=== PATIENT | male | born 1965 | race Two or more races ===

== ENCOUNTER 2020-06-09 08:14 | Inpatient (IN) | payer MEDICAID ==
[2020-06-09] VITALS (30 sets, daily range): BP systolic 99–126; BP diastolic 53–71
[~2020-06-09] VITALS: Ht 167.6 cm; Wt 74.4 kg
--- NOTE | 2020-06-09 08:20 | NUR ---
[id number] FROM BUS STOP, VOMITING BLOOD +ETOH. no fever noted. pt alert and able to follow directions. MD at bedside for evaluation. will continue to monitor
--- NOTE | 2020-06-09 08:23 | NUR ---
iv line established. blood drawn adn sent to lab
[2020-06-09] MEDS ORDERED: PANTOPRAZOLE 40 MG VIAL ONE (08:25)
[2020-06-09] MEDS ORDERED: IV NS 0.9% 1,000 ML BAG IV ONE (08:30)
[2020-06-09] MEDS ORDERED: PANTOPRAZOLE 40 MG VIAL IV ONE (08:30)
[2020-06-09 08:57] LABS: BASOPHILS % (AUTO) 0.4 % (0.0-2.0); EOSINOPHILS % (AUTO) 0.2 % (0.0-6.0); LYMPHOCYTES # (AUTO) 2.2 /CMM (0.8-4.8); MEAN CORPUSCULAR HGB CONC 34 g/dl (31.0-36.0); MEAN CORPUSCULAR VOLUME 107 fL (80-96); MONOCYTES # (AUTO) 1.1 /CMM (0.1-1.30); MONOCYTES % (AUTO) 11.8 % (2.0-12.0); NEUTROPHILS # (AUTO) 6.3 /CMM (1.8-8.9); NEUTROPHILS % (AUTO) 64.6 % (43.0-81.0); PLATELET COUNT (AUTO) 221 /CMM (150-450); WHITE BLOOD COUNT (AUTO) 9.7 K/uL (4.3-11.0)
[2020-06-09 08:58] LABS: RED BLOOD CELL COUNT(AUTO) 1.36 MIL/uL (4.5-6.0)
[2020-06-09 09:00] LABS: HEMATOCRIT 15 % (39-51); HEMOGLOBIN 4.9 g/dL (13.5-17.5)
--- NOTE | 2020-06-09 09:02 | NUR ---
GI CONSULT CALLED DR. ALVAREZ [phone]
[2020-06-09 09:06] LABS: CALCIUM, SERUM 8.1 mg/dL (8.5-10.1); CARBON DIOXIDE 22 mmol/L (21-32); CHLORIDE 100 mmol/L (98-107); CREATININE 1.1 mg/dL (0.6-1.3); GLUCOSE 122 mg/dL (74-106); POTASSIUM 4.6 mmol/L (3.5-5.1); SODIUM SERUM 135 mmol/L (136-145); UREA NITROGEN, BLOOD 29 mg/dL (7-18)
[2020-06-09 09:12] LABS: ALANINE AMINOTRANSFERASE 218 U/L (12-78); ALBUMIN 2.1 g/dL (3.4-5.0); ALKALINE PHOSPHATASE 70 U/L (46-116); ASPARTATE AMINOTRANSFERASE 611 U/L (15-37); BILIRUBIN,DIRECT 0.3 mg/dL (0.0-0.2); BILIRUBIN,TOTAL 0.8 mg/dL (0.2-1.0); TOTAL PROTEIN, SERUM 5.6 g/dL (6.4-8.2)
--- NOTE | 2020-06-09 09:14 | NUR ---
pt in bed alert and able to follow directions. no changes in LOC. all needs attended. kept pt comfortable. no episode of vomiting at this time. will continue POC
--- NOTE | 2020-06-09 09:27 | NUR ---
GOT BED IN 30 MINS ICU 254
[2020-06-09] MEDS ORDERED: MORPHINE SULFATE INJ 2 MG/ML DISP.SYRIN IV PRN (09:30)
[2020-06-09] MEDS ORDERED: OCTREOTIDE 1,250 MCG in IV NS 0.9% 250 ML IV ONE (09:30)
[2020-06-09] MEDS ORDERED: PANTOPRAZOLE 80 MG in IV NS 0.9% 500 ML IV PRN (09:30)
[2020-06-09] MEDS ORDERED: ONDANSETRON HCL/PF 4 MG/2 ML VIAL IVP PRN (09:30)
[2020-06-09] MEDS ORDERED: OCTREOTIDE 500 MCG in IV NS 0.9% 99 ML IV ONE (09:30)
[2020-06-09] MEDS ORDERED: PANTOPRAZOLE 80 MG in IV NS 0.9% 100 ML IV ONE (09:30)
[2020-06-09] MEDS ORDERED: LORAZEPAM INJ 2 MG/ML VIAL IV PRN (09:30)
[2020-06-09] MEDS ORDERED: OCTREOTIDE 50 MCG/ML AMPUL IV ONE (09:30)
[2020-06-09] MEDS ORDERED: Z GUARD REMEDY 2 OZ OINT TP PRN (09:30)
--- NOTE | 2020-06-09 09:37 | NUR ---
COVID SWAB COLLECTED AND SENT TO LAB
--- NOTE | 2020-06-09 09:51 | NUR ---
pt out for CT
[2020-06-09] MEDS ORDERED: IV D5/ 0.9% NACL 1,000 ML IV ONE (10:00)
[2020-06-09 10:19] LABS: LYMPHOCYTES % (MANUAL) 25 % (16-48); MONOCYTES % (MANUAL) 8 % (0-11.0); NEUTROPHILS % (MANUAL) 67 (42-76)
[2020-06-09] MEDS ORDERED: OCTREOTIDE 1,250 MCG in IV NS 0.9% 247.5 ML IV PRN (10:30)
--- NOTE | 2020-06-09 11:16 | NUR ---
REPORT GIVEN TO YANNI YOUNG FOR GORGE
--- NOTE | 2020-06-09 11:35 | NUR ---
RN ADMITTING NOTES RECEIVED PATIENT FROM ER VIA BED, A/OX4, WEAK, RELAXED, DENIES PAIN OR DISCOMFORT, ON RA SPO2 IS 93-94%, NO SOB NOTED AT THIS TIME,TELE-MONITOR READINGS IS SR 95 AT THIS MOMENT, DENIES CHEST PAIN OR TIGHTNESS; IV LINES PRESENT BILAT ON L AND R AC, BOTH G 18, INTACT AND PATENT. PATIENT RECEIVING PRBC 1 UNIT @ 120 CC/HR, TOLERATING WELL, NO SOB, FEVER, CHILLS OR ADVERSE REACTION NOTED AT THIS TIME, REPORTING MILD WEAKNESS ON LOWER EXTREMITIES, NPO STATUS NOTED, SCABS NOTED ON FOREHEAD, PICTURES TAKEN AND PLACED IN CHART, BED IN LOWEST POSITION, CALL LIGHT IN REACH, MONITORS CONNECTED, ALARMS WORKING, WILL CONT TO MONITOR
[2020-06-09] MEDS: Thiamine 100 MG in IV D5W 50 ML IV SCH (11:51)
--- NOTE | 2020-06-09 12:35 | NUR ---
TOLERATING BLOOD TRANSFUSION WELL, NO ADVERSE REACTION NOTED
[2020-06-09] MEDS: OCTREOTIDE 500 MCG in IV NS 0.9% 99 ML IV PRN (13:15)
--- NOTE | 2020-06-09 13:22 | NUR ---
SW called ICU attempting to interview the pt. over the phone. However, per ICU nurse, the pt. is very weak and not interviewable at the moment. SW will be available as needed.
--- NOTE | 2020-06-09 13:45 | NUR ---
picked up second unit of PRBC, will transfuse
--- NOTE | 2020-06-09 13:51 | NUR ---
Initialed second unit of blood transfusion, tolerating well, monitoring closely
[2020-06-09 15:13] LABS: BASOPHILS % (AUTO) 0.3 % (0.0-2.0); EOSINOPHILS % (AUTO) 0.2 % (0.0-6.0); LYMPHOCYTES # (AUTO) 1.2 /CMM (0.8-4.8); LYMPHOCYTES % (AUTO) 21.1 % (20.0-44.0); MEAN CORPUSCULAR HGB CONC 34 g/dl (31.0-36.0); MEAN CORPUSCULAR VOLUME 100 fL (80-96); MONOCYTES # (AUTO) 0.7 /CMM (0.1-1.30); MONOCYTES % (AUTO) 11.6 % (2.0-12.0); NEUTROPHILS # (AUTO) 3.8 /CMM (1.8-8.9); NEUTROPHILS % (AUTO) 66.8 % (43.0-81.0); PLATELET COUNT (AUTO) 103 /CMM (150-450); WHITE BLOOD COUNT (AUTO) 5.6 K/uL (4.3-11.0)
[2020-06-09 15:22] LABS: HEMOGLOBIN 5.7 g/dL (13.5-17.5); RED BLOOD CELL COUNT(AUTO) 1.66 MIL/uL (4.5-6.0)
[2020-06-09 15:23] LABS: HEMATOCRIT 17 % (39-51)
[2020-06-09 15:57] LABS: EOSINOPHILS % (MANUAL) 1 % (0-4); LYMPHOCYTES % (MANUAL) 25 % (16-48); MONOCYTES % (MANUAL) 10 % (0-11.0); NEUTROPHILS % (MANUAL) 64 (42-76)
[2020-06-09] MEDS: CEFTRIAXONE 1 G in IV D5W 50 ML IV SCH (16:04)
--- NOTE | 2020-06-09 16:20 | NUR ---
Finished blood transfusion, tolerated well, cont to monitor
--- NOTE | 2020-06-09 18:38 | NUR ---
PATIENT COMPLAINS ON PAIN IN ABDOMINAL AREA 8/10, EXPERIENCING TREMORS AND SHAKING, WILL ADMINISTER PRN PAIN MEDIATION
[2020-06-09] MEDS: MORPHINE SULFATE INJ 2 MG/ML DISP.SYRIN IV PRN ×2 (18:41→23:08)
--- NOTE | 2020-06-09 19:07 | NUR ---
RN CLOSING NOTES PATIENT REMAINS IN BED, A/OX4, ON NC @2L, SPO2 IS 100%, TOLERATING WELL, NO S/SX OF RESP DISTRESS NOTED, RECEIVING SANDOSTATIN @ 5CC/HR, AND D5NS @ 100C/HR, TOLERATING WELL, IV LINES PATENT AND INTACT,REPORTS PAIN LEVEL AT 2 AT THIS MOMENT AFTER ADMINISTRATION PRN PAIN MEDICATION, SAFETY MEASURES IN PLACE, CALL LIGHT IN REACH, BED IS LOCKED IN LOWEST POSITION, WILL ENDORSE TO PM SHIFT RN FOR GORGE
--- NOTE | 2020-06-09 19:45 | NUR ---
ICU/MONOTYPE KEYBOARD OPERATOR RECEIVED REPORT FROM DAY NURSE. SEE FLOWSHEET FOR ASSESSMENT,SKIN ISSUES ARE ADDRESSED ON FLOWSHEET ALONG WITH INTERVENTIONS TO EACH. PT IS ALERT X4. PT IS ON ROOM AIR SATURATION IS 96% ON ROOM AIR, PT APPEARS HAVE TAKEN OFF THE OXYGEN. PT TURNS SELF AND REPOSITIONS SELF FOR COMFORT AND CARE WITHOUT ANY ASSISTANCE. WILL CONTINUE TO MONITOR THIS PT, NO ACUTE DISTRESS SEEN.
[2020-06-09 20:28] LABS: HEMOGLOBIN 6.2 g/dL (13.5-17.5)
--- NOTE | 2020-06-09 20:36 | NUR ---
ICU/INSTRUMENT TECHNOLOGIST H/H IS 6.10/05. THERE WILL BE ONE MORE UNIT OF BLOOD TO GIVE PER MD ORDERS. Addendum: 06/09/20 at 2036 by ADELA SHORE LVN Amended: Links added.
[2020-06-09] MEDS: PANTOPRAZOLE 40 MG VIAL IV SCH (21:28)
--- NOTE | 2020-06-09 23:10 | NUR ---
ICU/DATA PROCESSING SYSTEMS CONSULTANT CALLED BLOOD BANK TO SEE IF 1 UNIT OF PACKED RED BLOOD CELLS IS AVAILABLE, WHICH IT IS. WILL TRANSFUSE THIS PER MD'S ORDERS.
[2020-06-10] VITALS (29 sets, daily range): BP systolic 100–137; BP diastolic 58–89
--- NOTE | 2020-06-10 00:35 | NUR ---
ICU/STONE TRIMMER LAST TRANSFUSION BEGAN, PT APPEARS TO BE TOLERATING THIS WELL, WITHOUT ANY PROBLEMS. CALL LIGHT WITHIN REACH.
--- NOTE | 2020-06-10 03:00 | NUR ---
ICU/WEIGHER PACKING LAST TRANSFUSION COMPLETED, WILL HAVE AM LABS DRAWN IN AN HOUR OR SO FOR H&H RESULTS. NO ACUTE DISTRESS SEEN. PT APPEARS TO BE COMFORTABLE.
[2020-06-10] MEDS: OCTREOTIDE 500 MCG in IV NS 0.9% 99 ML IV PRN ×3 (03:52→19:39)
[2020-06-10 04:45] LABS: EOSINOPHILS % (AUTO) 1.5 % (0.0-6.0); HEMATOCRIT 22 % (39-51); HEMOGLOBIN 7.6 g/dL (13.5-17.5); LYMPHOCYTES % (AUTO) 24.3 % (20.0-44.0); MEAN CORPUSCULAR HGB CONC 34 g/dl (31.0-36.0); MEAN CORPUSCULAR VOLUME 98 fL (80-96); MONOCYTES # (AUTO) 0.4 /CMM (0.1-1.30); MONOCYTES % (AUTO) 10.6 % (2.0-12.0); NEUTROPHILS # (AUTO) 2.7 /CMM (1.8-8.9); NEUTROPHILS % (AUTO) 62.6 % (43.0-81.0); RED BLOOD CELL COUNT(AUTO) 2.26 MIL/uL (4.5-6.0); WHITE BLOOD COUNT (AUTO) 4.2 K/uL (4.3-11.0)
[2020-06-10 05:03] LABS: CALCIUM, SERUM 7.2 mg/dL (8.5-10.1); CREATININE 0.9 mg/dL (0.6-1.3); MAGNESIUM 2.2 mg/dL (1.8-2.4); PHOSPHORUS 2.4 mg/dL (2.5-4.9)
[2020-06-10 05:08] LABS: THYROID STIMULATING HORMONE 0.435 uIU/mL (0.358-3.74)
--- NOTE | 2020-06-10 05:10 | NUR ---
ICU/PARK MAINTAINER AM LABS WERE DRAWN, H&H IS STABLE. WILL PASS THIS ON TO DAY SHIFT.
[2020-06-10 06:20] LABS: PLATELET COUNT (AUTO) 108 /CMM (150-450)
[2020-06-10 06:23] LABS: EOSINOPHILS % (MANUAL) 2 % (0-4); LYMPHOCYTES % (MANUAL) 24 % (16-48); MONOCYTES % (MANUAL) 11 % (0-11.0); NEUTROPHILS % (MANUAL) 63 (42-76)
--- NOTE | 2020-06-10 08:25 | NUR ---
received pt from mine shifter, a/o x4, SR, sat well on RA, no episodes of hemoptysis or black stool reported, urinates in urinal, receiving Sandostatin gtt, v/s stable, no pain, EGD today.
[2020-06-10] MEDS: Thiamine 100 MG in IV D5W 50 ML IV SCH (08:56)
[2020-06-10] MEDS: PANTOPRAZOLE 40 MG VIAL IV SCH ×2 (08:56→20:31)
[2020-06-10] MEDS ORDERED: Sodium Phosphate 15 MMOL in IV NS 0.9% 250 ML IV SCH (11:00)
[2020-06-10] MEDS ORDERED: FENTANYL PF 100MCG/2ML AMPUL ONE (11:15)
[2020-06-10] MEDS ORDERED: SUCCINYLCHOLINE CHLORIDE 20 MG/ML VIAL ONE ×2 (11:28→11:29)
[2020-06-10] MEDS ORDERED: ANESTHESIA TRAY IN PYXIS 1 EA TRAY MC ONE (11:36)
--- NOTE | 2020-06-10 12:00 | NUR ---
pt taken to OR for EGD.
--- NOTE | 2020-06-10 13:30 | NUR ---
pt is back from EGD, alert, follows commands, v/s stable, no pain.
[2020-06-10] MEDS: CEFTRIAXONE 1 G in IV D5W 50 ML IV SCH (15:41)
[2020-06-10 15:49] LABS: BASOPHILS # (AUTO) 0.1 /CMM (0.0-0.2); BASOPHILS % (AUTO) 1.3 % (0.0-2.0); EOSINOPHILS % (AUTO) 0.4 % (0.0-6.0); HEMATOCRIT 24 % (39-51); HEMOGLOBIN 8.3 g/dL (13.5-17.5); LYMPHOCYTES # (AUTO) 0.2 /CMM (0.8-4.8); MEAN CORPUSCULAR HGB CONC 34 g/dl (31.0-36.0); MEAN CORPUSCULAR VOLUME 99 fL (80-96); MONOCYTES # (AUTO) 0.1 /CMM (0.1-1.30); MONOCYTES % (AUTO) 1.9 % (2.0-12.0); NEUTROPHILS # (AUTO) 5.5 /CMM (1.8-8.9); NEUTROPHILS % (AUTO) 92.4 % (43.0-81.0); PLATELET COUNT (AUTO) 96 /CMM (150-450); RED BLOOD CELL COUNT(AUTO) 2.45 MIL/uL (4.5-6.0)
--- NOTE | 2020-06-10 16:16 | NUR ---
pt is resting in the bed, a/o x4, SR, sat well on RA, no active bleeding, v/s stable, no pain.
[2020-06-10 16:55] LABS: BAND % (MANUAL) 6 % (0.0-5.0); LYMPHOCYTES % (MANUAL) 6 % (16-48); MONOCYTES % (MANUAL) 1 % (0-11.0); NEUTROPHILS % (MANUAL) 87 (42-76)
--- NOTE | 2020-06-10 19:25 | NUR ---
RN NOTE RECEIVED PT IN BED. AWAKE AND ALERT/ORIENTED X 4. ABLE TO MAKE NEEDS KNOWN. CURRENTLY ON ROOM AIR. RESPIRATIONS EVEN AND UNLABORED. SR ON THE MONITOR. VITAL SIGNS STABLE VIA BEDSIDE MONITOR. ABLE TO USE URINAL . IV LINES FLUSHED AND PATENT WITHOUT COMPLICATIONS AT SITES. WITH COMPLAINT OF GENERALIZED BODY PAIN. WILL ADMINISTER PRN ANALGESICS ORDERED, CALL LIGHT WITHIN REACH, SAFETY MEASURES IN PLACE, WILL MONITOR PATIENT.
[2020-06-10] MEDS: MORPHINE SULFATE INJ 2 MG/ML DISP.SYRIN IV PRN ×2 (19:40→23:42)
[2020-06-11] VITALS (10 sets, daily range): BP systolic 113–149; BP diastolic 76–94
--- NOTE | 2020-06-11 01:06 | NUR ---
RN NOTE PT SLEEPING IN BED WITHOUT INDICATIONS OF PAIN OR DISCOMFORT AT THIS TIME. VITAL SIGNS STABLE. WILL CONTINUE TO MONITOR PATIENT.
[2020-06-11 04:37] LABS: BASOPHILS % (AUTO) 0.4 % (0.0-2.0); EOSINOPHILS % (AUTO) 1.3 % (0.0-6.0); HEMATOCRIT 23 % (39-51); HEMOGLOBIN 7.6 g/dL (13.5-17.5); LYMPHOCYTES # (AUTO) 0.9 /CMM (0.8-4.8); MEAN CORPUSCULAR HGB CONC 34 g/dl (31.0-36.0); MEAN CORPUSCULAR VOLUME 98 fL (80-96); MONOCYTES # (AUTO) 0.4 /CMM (0.1-1.30); MONOCYTES % (AUTO) 9.1 % (2.0-12.0); NEUTROPHILS # (AUTO) 3.5 /CMM (1.8-8.9); NEUTROPHILS % (AUTO) 71.2 % (43.0-81.0); PLATELET COUNT (AUTO) 92 /CMM (150-450); RED BLOOD CELL COUNT(AUTO) 2.29 MIL/uL (4.5-6.0); WHITE BLOOD COUNT (AUTO) 4.9 K/uL (4.3-11.0)
--- NOTE | 2020-06-11 04:50 | NUR ---
customer support advisor opening notes Received Pt from ICU nurse HECTOR Winkler. Pt arrived at the unit with a gurney and ACLS protocol. Pt is alert and orientedX4. Respiration is normal in room air. No SOB. No S/S of distress noted. Tele monitor showed SR HR at 69 bpm. IV sites at LAC# 18 is clean, intact and flushes well. Noted forehead scab. Keep clean and dry. Safety precautions is maintained. Bed at low position, brakes locked, side railsup X2, HOB elevated, urinal at the bedside, call light is within reach. Will continue to monitor.
[2020-06-11 04:55] LABS: CALCIUM, SERUM 7.3 mg/dL (8.5-10.1); CREATININE 0.8 mg/dL (0.6-1.3); PHOSPHORUS 3.1 mg/dL (2.5-4.9); POTASSIUM 3.9 mmol/L (3.5-5.1)
--- NOTE | 2020-06-11 04:59 | NUR ---
RN NOTE PATIENT TRANSFERRED TO ROOM 208. REPORT GIVEN TO TODD YOUNG FOR CONTINUATION OF CARE.
[2020-06-11 05:19] LABS: LYMPHOCYTES % (MANUAL) 14 % (16-48); MONOCYTES % (MANUAL) 7 % (0-11.0); NEUTROPHILS % (MANUAL) 79 (42-76)
--- NOTE | 2020-06-11 06:35 | NUR ---
funeral service apprentice closing notes Pt is resting in bed comfortably. Pt is alert and orientedX4. Respiration is normal in room air. No SOB. No S/S of distress noted. Tele monitor showed SR HR at 77 bpm. VS is stable. Afebrile. IV sites at LAC# 18 is clean, intact and infusing well sandostatin. Safety precautions is maintained. Bed at low position, brakes locked, side railsup X2, HOB elevated, urinal at the bedside, call light is within reach. Will endorse to morning nurse for GORGE.
[2020-06-11] MEDS: PANTOPRAZOLE 40 MG VIAL IV SCH ×2 (08:03→20:13)
[2020-06-11] MEDS: MORPHINE SULFATE INJ 2 MG/ML DISP.SYRIN IV PRN ×3 (08:12→20:14)
[2020-06-11] MEDS: OCTREOTIDE 500 MCG in IV NS 0.9% 99 ML IV PRN (10:08)
[2020-06-11] MEDS: Thiamine 100 MG in IV D5W 50 ML IV SCH (11:46)
[2020-06-11] MEDS: CEFTRIAXONE 1 G in IV D5W 50 ML IV SCH (15:35)
--- NOTE | 2020-06-11 19:10 | NUR ---
IRON MELTER OPENING NOTES RECEIVED PATIENT IN BED AWAKE ALERT AND ORIENTED X4, ON RA RESPIRATIONS EVEN AND UNLABORED WITH EQUAL RISE AND FALL OF CHEST, DENIES ANY PAIN OR DISCOMFORT AT THIS TIME, ON TELE MONITORING SR 76, IV SITE TO LEFT AC#18 G INTACT AND PATENT, NO REDNESS, NO INFILTRATION PRESENT,ORIENTED TO STAFF AND CALL LIGHT AND KEPT WITHIN REACH ,LOW BED AND LOCKED, SAFETY PRECAUTIONS RENDERED, WILL CONTINUE TO MONITOR AND ATTEND TO NEEDS. NO NAUSEA OR VOMITING PRESENT AT THIS TIME.
--- NOTE | 2020-06-11 20:14 | NUR ---
international sourcing manager notes patient complained of pain to generalized area , abdomen area, states 10/. requested for morphine prn vs assessed wnl, prn morphine given as ordered, will continue to monitor for effectiveness.
[2020-06-12] VITALS (8 sets, daily range): BP systolic 117–132; BP diastolic 74–97
--- NOTE | 2020-06-12 | NUR ---
HRIS ANALYST OPENING NOTE RECEIVED PT A/O X4. COOPERATIVE AND POLITE. BREATHING EVEN AND UNLABORED ON RA. DENIES ANY PAIN OR DISCOMFORT. LEFT HAND #20G IV LINE PATENT AND INTACT. DRESSING CLEAN AND DRY. ALL NEEDS RENDERED. SRX2 UP. CALL LIGHT WITHIN REACH. WILL CONTINUE TO MONITOR.
[2020-06-12] MEDS: MORPHINE SULFATE INJ 2 MG/ML DISP.SYRIN IV PRN ×4 (02:46→22:56)
--- NOTE | 2020-06-12 02:49 | NUR ---
returns processor notes patient complained of pain to generalized area , abdomen area, states 10/. requested for morphine prn vs assessed wnl, prn morphine given as ordered, will continue to monitor for effectiveness.
--- NOTE | 2020-06-12 06:35 | NUR ---
AGING BOX HAND CLOSING NOTES PATIENT IN BED AWAKE ALERT AND ORIENTED X4, ON RA RESPIRATIONS EVEN AND UNLABORED WITH EQUAL RISE AND FALL OF CHEST, DENIES ANY PAIN OR DISCOMFORT AT THIS TIME, ON TELE MONITORING SR 61, IV SITE TO LEFT AC#18 G INTACT AND PATENT, NO REDNESS, NO INFILTRATION PRESENT, CALL LIGHT KEPT WITHIN REACH ,LOW BED AND LOCKED, SAFETY PRECAUTIONS RENDERED, WILL CONTINUE TO MONITOR AND ATTEND TO NEEDS. NO NAUSEA OR VOMITING PRESENT AT THIS TIME. WILL ENDORSE TO NEXT SHIFT.
[2020-06-12] MEDS: OCTREOTIDE 500 MCG in IV NS 0.9% 99 ML IV PRN (06:42)
[2020-06-12 06:47] LABS: EOSINOPHILS % (AUTO) 1.5 % (0.0-6.0); HEMATOCRIT 23 % (39-51); HEMOGLOBIN 7.7 g/dL (13.5-17.5); LYMPHOCYTES # (AUTO) 1.1 /CMM (0.8-4.8); LYMPHOCYTES % (AUTO) 25.1 % (20.0-44.0); MEAN CORPUSCULAR HGB CONC 34 g/dl (31.0-36.0); MEAN CORPUSCULAR VOLUME 98 fL (80-96); MONOCYTES # (AUTO) 0.6 /CMM (0.1-1.30); NEUTROPHILS # (AUTO) 2.5 /CMM (1.8-8.9); NEUTROPHILS % (AUTO) 58.4 % (43.0-81.0); PLATELET COUNT (AUTO) 90 /CMM (150-450); RED BLOOD CELL COUNT(AUTO) 2.34 MIL/uL (4.5-6.0); WHITE BLOOD COUNT (AUTO) 4.3 K/uL (4.3-11.0)
[2020-06-12 07:20] LABS: CALCIUM, SERUM 7.3 mg/dL (8.5-10.1); CREATININE 0.7 mg/dL (0.6-1.3); POTASSIUM 4.2 mmol/L (3.5-5.1)
--- NOTE | 2020-06-12 08:00 | NUR ---
CORE JAVA ENGINEER OPENING NOTES Received Patient resting in bed. A/O x 4. VS stable with no acute distress. Breathing even and unlabored on room air with no respiratory distress. Patient stated esophageal and abdominal pain. Will intervene as ordered. Telemonitor in place and patent. 18g PIV on LFA intact, patent and flushing well. Safety precautions in place. Bed locked and set to lowest position with side rails x 2 up. All needs rendered at this time. Call light within reach. Will continue to monitor.
[2020-06-12] MEDS: PANTOPRAZOLE 40 MG VIAL IV SCH ×2 (09:14→21:40)
[2020-06-12] MEDS: Thiamine 100 MG in IV D5W 50 ML IV SCH (09:15)
[2020-06-12 09:23] LABS: EOSINOPHILS % (MANUAL) 3 % (0-4); LYMPHOCYTES % (MANUAL) 24 % (16-48); MONOCYTES % (MANUAL) 12 % (0-11.0); NEUTROPHILS % (MANUAL) 61 (42-76)
[2020-06-12] MEDS: CEFTRIAXONE 1 G in IV D5W 50 ML IV SCH (17:17)
--- NOTE | 2020-06-12 19:39 | NUR ---
BUSSER CLOSING NOTES Patient resting in bed. A/O x 4. VS stable with no acute distress. Breathing even and unlabored on room air with no respiratory distress. Patient stated esophageal and abdominal pain. Administered Morphine 4mg IVP at 1830. Will endorse to oncoming shift. 18g PIV on LFA intact, patent and flushing well. Safety precautions in place. Bed locked and set to lowest position with side rails x 2 up. All needs rendered at this time. Call light within reach. Will endorse plan of care to RICK RN.
--- NOTE | 2020-06-12 20:00 | NUR ---
RN OPENING NOTE RECEIVED PT IN BED . A/O X4. BREATHING EVEN AND UNLABORED WITH NO SOB OR ACUTE DISTRESS NOTED. DENIES ANY PAIN. IV SITE PATENT AND INTACT. ALL NEEDS RENDERED. SRX2 UP. BED IN LOWEST POSITION. CALL LIGHT WITHIN REACH. WILL CONTINUE TO MONITOR.
[2020-06-13] VITALS: BP 118/83
[2020-06-13 04:00] VITALS: BP 120/83
[2020-06-13 06:24] LABS: BASOPHILS % (AUTO) 1.1 % (0.0-2.0); HEMATOCRIT 21 % (39-51); HEMOGLOBIN 7.3 g/dL (13.5-17.5); LYMPHOCYTES # (AUTO) 1.2 /CMM (0.8-4.8); LYMPHOCYTES % (AUTO) 31.2 % (20.0-44.0); MEAN CORPUSCULAR HGB CONC 34 g/dl (31.0-36.0); MEAN CORPUSCULAR VOLUME 97 fL (80-96); MONOCYTES # (AUTO) 0.6 /CMM (0.1-1.30); NEUTROPHILS # (AUTO) 1.9 /CMM (1.8-8.9); NEUTROPHILS % (AUTO) 50.7 % (43.0-81.0); PLATELET COUNT (AUTO) 90 /CMM (150-450); RED BLOOD CELL COUNT(AUTO) 2.21 MIL/uL (4.5-6.0); WHITE BLOOD COUNT (AUTO) 3.8 K/uL (4.3-11.0)
--- NOTE | 2020-06-13 06:46 | NUR ---
MARBLE AND GRANITE POLISHER CLOSING NOTE PT IN BED. AWAKE AND A/O X4. BREATHING EVEN AND UNLABORED WITH NO SOB OR ACUTE DISTRESS NOTED. DENIES ANY PAIN. LHAND IV REINSERTED WITH 22GAUGE, GOOD BLOOD RETURN NOTED. PT TOLERATED PROCEDURE WELL. ALL NEEDS RENDERED . CALL LIGHT WITHIN REACH. WILL ENDORSE TO AM NURSE FOR CONTINUITY OF CARE.
[2020-06-13 06:54] LABS: CALCIUM, SERUM 7.7 mg/dL (8.5-10.1); CREATININE 0.7 mg/dL (0.6-1.3); POTASSIUM 4.5 mmol/L (3.5-5.1)
--- NOTE | 2020-06-13 07:20 | NUR ---
PT IN BED. AWAKE AND A/O X4. BREATHING EVEN AND UNLABORED WITH NO SOB OR ACUTE DISTRESS NOTED. DENIES PAIN. LHAND IV FLUSHED PATENT AND DRESSING INTACT. AWAITING SOCIAL CONSULT FOR DC PLANNING. ALL HOSPITAL POLICY SAFETY PRECAUTIONS IMPLEMENTED.
[2020-06-13 08:00] VITALS: BP 120/83
[2020-06-13] MEDS: PANTOPRAZOLE 40 MG VIAL IV SCH (09:08)
[2020-06-13] MEDS: MORPHINE SULFATE INJ 2 MG/ML DISP.SYRIN IV PRN (09:12)
[2020-06-13] MEDS ORDERED: PANT40TA2 PO (09:27)
[2020-06-13] MEDS ORDERED: THIAMINE HCL 100 MG TABLET PO SCH (10:30)
[2020-06-13] MEDS ORDERED: INFLUENZA VACCINE 2020-21 0.5 ML DISP.SYRIN IM ONE (11:00)
--- NOTE | 2020-06-13 11:51 | NUR ---
Building Economist consult requested by patient. Patient is a 54 year-old male. Patient is alert and oriented x4. Patient was walking from bathroom to bed when this SW approached patient's room. Patient requested to be placed in a halfway. SW informed patient that SW called [facility] ([place] and [place] Location) and was told by Michelle from [facility] that patient needs to be referred to [facility] for patient to be placed in shelters. SW provide contact the following resources for the patient in addition to a set of clothes per patients request. Plan: Patient to discharge to self. Patient is in agreement. [facility]: [address] [place] [address] [facility] [place]: [address] [facility], [address]nd Floor [place], [place] [id number] Substance Abuse resources provided included: [facility] Substance Abuse Self-Helpline ([facility]) ; [facility] [address] [facility] [place] [id number] ; [facility] [address] [facility] [address] [facility] [address] [facility] [phone] ; [place] [address] [facility] [phone] ; [facility] [address] [facility] [phone] ; [facility] [address] [facility] [phone] ; [facility] Substance Abuse Helpline([facility])-[facility] ; [facility] ; [facility] [place]; [facility] [place]; [facility] [place]; [facility] [place]; [facility] [place]; [facility] [place]; [facility] [place]; [facility] Silvina [place]; Alcoholics Anonymous -[facility]V; Vt-Bqpb-Jqpfsmj ; Marijuana Anonymous -[facility]; Narcotics Anonymous www.na.org. Year-round shelters : [place] [facility] [address] [address] ; [facility] [address] [place] [address]; [id number] [facility]. [facility] [address] Food Resources: [place] [facility] at [facility]- [address] [facility] Resources; Meet Each Need wit [facility] ([facility]) [address] [facility]; [facility] Food Pantry [address] [facility]; [facility] [address] [facility]. Mental Health resources provided: [facility] [address] [place] [address] ; [facility] [place] [address], [place] [address] ; [facility] Mental [facility] [address] [place] [address] ; [facility] [place] [address] [place] [address]
--- NOTE | 2020-06-13 12:00 | NUR ---
PT DC TO SELF. IV REMOVED NO SIGNS OF BLEEDING. TOLERATED WELL. ALL BELONGINGS BROUGHT AND ALL DC PAPERS. ROBOT DESIGNER PROVIDED AVAILABLE RESOURCES TO PT. FLU VACCINE ADMIN. TOLERATED WELL. REFUSED PNEUMOCOCCAL VACCINE. DENIES QUESTIONS OR CONCERNS.
== END 2020-06-13 12:40 | disposition home or self-care (01) | DRG 280 ==
LOC: ER 08:16 → ICU 09:33 → TELE2 06-11 04:42 → TELE1 06-12 20:30 → MEDSG1 06-13 09:28
PROVIDERS: ADMIT Nurse Practitioner Acute Care; ATTEND Internal Medicine
PROC: 30233N1 Transfusion of Nonautologous Red Blood Cells into Peripheral Vein, Percutaneous Approach (ICD-10-PCS; 2020-06-09)
PROC: 06L38CZ Occlusion of Esophageal Vein with Extraluminal Device, Via Natural or Artificial Opening Endoscopic (ICD-10-PCS; principal; 2020-06-10)
DX: K70.30 Alcoholic cirrhosis of liver without ascites (principal); E11.9 Type 2 diabetes mellitus without complications; E87.1 Hypo-osmolality and hyponatremia; Y90.9 Presence of alcohol in blood, level not specified; D62 Acute posthemorrhagic anemia; F17.210 Nicotine dependence, cigarettes, uncomplicated; Z59.0 Homelessness; I85.11 Secondary esophageal varices with bleeding; K44.9 Diaphragmatic hernia without obstruction or gangrene; F31.9 Bipolar disorder, unspecified; K80.20 Calculus of gallbladder without cholecystitis without obstruction; F10.20 Alcohol dependence, uncomplicated; K31.89 Other diseases of stomach and duodenum; N20.0 Calculus of kidney; K40.90 Unilateral inguinal hernia, without obstruction or gangrene, not specified as recurrent; E86.1 Hypovolemia; F19.10 Other psychoactive substance abuse, uncomplicated; R74.01 Elevation of levels of liver transaminase levels; Z86.59 Personal history of other mental and behavioral disorders
CPT/HCPCS: 36415; 71045-TC; 80048-TC; 80061-TC; 80074; 80076-TC; 83735-TC; 84100-TC; 84443-TC; 84484-TC; 85025-TC; 85027-TC; 85730-TC; 86850-TC; 87081-TC; 93307-TC; A9563; C9113; G0378; J0330; J0696; J2060; J2270; J2354; J2405; J2704; J3010; J3411; J7030; J7042; J7050; J7060; P9016-BL; Q2036; U0003